=== PATIENT | male | born 1995 | race Caucasian/White ===

== ENCOUNTER 2021-02-01 13:20 | Emergency (ER) | payer SELFPAY ==
--- NOTE | 2021-02-01 14:02 | EDM.PDOC ---
ED HPI GENERAL MEDICAL PROBLEM - General Chief Complaint: Respiratory Problem Stated Complaint: SOB Time Seen by Provider: 02/01/21 13:47 Source of Information: Reports: Patient History Limitations: Reports: No Limitations - History of Present Illness INITIAL COMMENTS - FREE TEXT/NARRATIVE: Néstor is a 25-year-old male presenting to the ED for increased shortness of breath. The patient reports that he acutely became short of breath and "turned blue today" prompting him to come into the ED for evaluation. Patient does report that he smokes 2 packs of cigarettes a day. He denies any fever or chills, cough, loss of taste or smell, nausea, vomiting, or diarrhea. He has had a normal appetite. He was outside in the cold air when this occurred today. - Related Data Allergies Allergy/AdvReac Type Severity Reaction Status Date / Time No Known Allergies Allergy Verified 02/01/21 13:41 Home Meds: Home Meds NK [No Known Home Meds] 02/01/21 [History] Past Medical History HEENT History: Reports: Otitis Media Cardiovascular History: Reports: Hypertension Respiratory History: Reports: None Gastrointestinal History: Reports: GERD Genitourinary History: Reports: None Musculoskeletal History: Reports: Fracture Neurological History: Reports: None Psychiatric History: Reports: Anxiety, Depression Endocrine/Metabolic History: Reports: None Hematologic History: Reports: None Immunologic History: Reports: None Oncologic (Cancer) History: Reports: None Dermatologic History: Reports: None - Infectious Disease History Infectious Disease History: Reports: Chicken Pox - Past Surgical History HEENT Surgical History: Reports: Myringotomy w Tube(s), Tonsillectomy Other HEENT Surgeries/Procedures: cyst in right ear removed ED ROS GENERAL - Review of Systems Review Of Systems: See Below Constitutional: Reports: No Symptoms HEENT: Reports: No Symptoms Respiratory: Reports: Shortness of Breath Cardiovascular: Reports: No Symptoms Endocrine: Reports: No Symptoms GI/Abdominal: Reports: No Symptoms : Reports: No Symptoms Musculoskeletal: Reports: No Symptoms Skin: Reports: Cyanosis (Witnessed by several of his coworkers involving the face and hands.) Neurological: Reports: No Symptoms Psychiatric: Reports: Anxiety Hematologic/Lymphatic: Reports: No Symptoms Immunologic: Reports: No Symptoms ED EXAM, GENERAL - Physical Exam Exam: See Below Exam Limited By: No Limitations General Appearance: Alert, No Apparent Distress, Obese Eye Exam: Bilateral Eye: EOMI, PERRL Throat/Mouth: Normal Inspection, Normal Oropharynx, Normal Voice, No Airway Compromise. No: Perioral Cyanosis Head: Atraumatic, Normocephalic Neck: Normal Inspection, Supple Respiratory/Chest: No Respiratory Distress, Lungs Clear, Normal Breath Sounds. No: Crackles, Rales, Rhonchi, Wheezing Cardiovascular: Normal Peripheral Pulses, Regular Rate, Rhythm, No Murmur Peripheral Pulses: 2+: Radial (L), Radial (R) GI/Abdominal: Normal Bowel Sounds, Soft, Non-Tender Neurological: Alert, Oriented, Normal Cognition, No Motor/Sensory Deficits Psychiatric: Normal Affect, Normal Mood Skin Exam: Warm, Dry, Intact. No: Cyanosis Lymphatic: No Adenopathy Course - Vital Signs Last Recorded V/S: Last Vital Signs Temp 36.8 C 02/01/21 13:39 Pulse 80 02/01/21 13:42 Resp 20 02/01/21 13:42 BP 129/77 02/01/21 13:42 Pulse Ox 98 02/01/21 13:42 - Orders/Labs/Meds Orders: Active Orders 24 hr Category Date Time Status D-DIMER QUANTITATIVE [COAG] Stat Lab 02/01/21 13:49 Received PROCALCITONIN [CHEM] Stat Lab 02/01/21 13:49 Received Isolation [COMM] Stat Oth 02/01/21 13:57 Ordered Labs: Laboratory Tests 02/01/21 02/01/21 02/01/21 Range/Units 13:49 13:49 13:49 WBC 7.7 (4.5-11.0) K/uL RBC 5.56 (4.30-5.90) M/uL Hgb 16.0 H (12.0-15.0) g/dL Hct 48.4 (40.0-54.0) % MCV 87 (80-98) fL MCH 29 (27-31) pg MCHC 33 (32-36) % Plt Count 265 (150-400) K/uL Neut % (Auto) 62.5 (36-66) % Lymph % (Auto) 28.4 (24-44) % Amite % (Auto) 7.8 H (2-6) % Eos % (Auto) 0.9 L (2-4) % Baso % (Auto) 0.4 (0-1) % Sodium 137 L (140-148) mmol/L Potassium 3.9 (3.6-5.2) mmol/L Chloride 103 (100-108) mmol/L Carbon Dioxide 27 (21-32) mmol/L Anion Gap 10.9 (5.0-14.0) mmol/L BUN 18 (7-18) mg/dL Creatinine 0.9 (0.8-1.3) mg/dL Est Cr Clr Drug Dosing 144.26 mL/min Estimated GFR (MDRD) > 60 (>60) Glucose 102 (74-106) mg/dL Lactic Acid 1.0 (0.4-2.0) mmol/L Calcium 8.9 (8.5-10.1) mg/dL Total Bilirubin 0.5 (0.2-1.0) mg/dL AST 16 (15-37) U/L ALT 35 (12-78) U/L Alkaline Phosphatase 56 (46-116) U/L Lactate Dehydrogenase 159 (85-227) U/L C-Reactive Protein < 0.05 (0.0-0.3) mg/dL Total Protein 6.6 (6.4-8.2) g/dL Albumin 3.8 (3.4-5.0) g/dL Globulin 2.8 (2.3-3.5) g/dL Albumin/Globulin Ratio 1.4 (1.2-2.2) Influenza Type A RNA (NEGATIVE) RSV RNA (INAAT) (NEGATIVE) Influenza Type B RNA (NEGATIVE) SARS-CoV-2 RNA (YADIRA) (NEGATIVE) 02/01/21 Range/Units 14:20 WBC (4.5-11.0) K/uL RBC (4.30-5.90) M/uL Hgb (12.0-15.0) g/dL Hct (40.0-54.0) % MCV (80-98) fL MCH (27-31) pg MCHC (32-36) % Plt Count (150-400) K/uL Neut % (Auto) (36-66) % Lymph % (Auto) (24-44) % Amite % (Auto) (2-6) % Eos % (Auto) (2-4) % Baso % (Auto) (0-1) % Sodium (140-148) mmol/L Potassium (3.6-5.2) mmol/L Chloride (100-108) mmol/L Carbon Dioxide (21-32) mmol/L Anion Gap (5.0-14.0) mmol/L BUN (7-18) mg/dL Creatinine (0.8-1.3) mg/dL Est Cr Clr Drug Dosing mL/min Estimated GFR (MDRD) (>60) Glucose (74-106) mg/dL Lactic Acid (0.4-2.0) mmol/L Calcium (8.5-10.1) mg/dL Total Bilirubin (0.2-1.0) mg/dL AST (15-37) U/L ALT (12-78) U/L Alkaline Phosphatase (46-116) U/L Lactate Dehydrogenase (85-227) U/L C-Reactive Protein (0.0-0.3) mg/dL Total Protein (6.4-8.2) g/dL Albumin (3.4-5.0) g/dL Globulin (2.3-3.5) g/dL Albumin/Globulin Ratio (1.2-2.2) Influenza Type A RNA Negative (NEGATIVE) RSV RNA (INAAT) Negative (NEGATIVE) Influenza Type B RNA Negative (NEGATIVE) SARS-CoV-2 RNA (YADIRA) Negative (NEGATIVE) - Re-Assessments/Exams Free Text/Narrative Re-Assessment/Exam: 02/01/21 15:12 I reviewed the patient's labs showing a normal CBC with a leukocyte count of 7.7, hemoglobin of 16, and platelet count of 265,000. His comprehensive metabolic panel was also unremarkable with a sodium of 137, potassium 3.9, chloride of 103, bicarbonate of 27, BUN of 18 with a creatinine of 0.9 and a glucose of 102. The patient's lactate acid was 1.0, his LDH was 159 and his C-reactive protein was less than 0.05. He is negative for Covid, RSV, and influenza. His chest x-ray was unremarkable. At this time I believe the patient is suitable for discharge home. He likely had symptoms related to bronchospasm. We did discuss smoking cessation and he should find a program that will work for him including addressing other treatments for his anxiety which is likely why he is a 2 pack-a-day smoker. Indications return to the ED were discussed and he was discharged in satisfactory condition. Departure - Departure Time of Disposition: 15:08 Disposition: Home, Self-Care 01 Clinical Impression: Acute bronchospasm, Tobacco use - Discharge Information Instructions: Bronchospasm, Adult, [id number] Referrals: PCP,None [Primary Care Provider] - Forms: ED Department Discharge Care Plan Goals: Your work-up today has shown that you are negative for COVID-19, influenza, and RSV. There was no sign in your work-up of a pneumonia or bronchitis with normal blood work. Your chest x-ray was remarkable only for hyperinflation of the lungs consistent with your smoking. I would highly recommend that you find a program that works for you to quit smoking as you do not want to develop COPD and require oxygen. At this time we can safely let you go home. If you have any questions or concerns feel free to contact us. Sepsis Event Note (ED) - Evaluation Sepsis Screening Result: No Definite Risk - Focused Exam Vital Signs: Vital Signs Temp Pulse Resp BP Pulse Ox 02/01/21 13:42 80 20 129/77 98 02/01/21 13:39 36.8 C 85 18 154/122 H 98 02/01/21 13:35 36.8 C 85 18 154/122 H 98 - Problem List & Annotations (1) Acute bronchospasm SNOMED Code(s): 41201533335318 Code(s): J98.01 - ACUTE BRONCHOSPASM Status: Acute Priority: High Current Visit: Yes (2) Tobacco use SNOMED Code(s): 040907375 Code(s): Z72.0 - TOBACCO USE Status: Acute Priority: High Current Visit: Yes - Problem List Review Problem List Initiated/Reviewed/Updated: Yes - My Orders Last 24 Hours: My Active Orders 02/01/21 13:49 D-DIMER QUANTITATIVE [COAG] Stat PROCALCITONIN [CHEM] Stat 02/01/21 13:57 Isolation [COMM] Stat - Assessment/Plan Last 24 Hours: My Active Orders 02/01/21 13:49 D-DIMER QUANTITATIVE [COAG] Stat PROCALCITONIN [CHEM] Stat 02/01/21 13:57 Isolation [COMM] Stat
[2021-02-01 14:46] LABS: CORONAVIRUS COVID-19 NAA NEGATIVE (NEGATIVE)
--- NOTE | 2021-02-01 14:49 | CR ---
CHEST: Portable 02/01/2021 at 2:37 PM CLINICAL HISTORY:Dyspnea and cyanosis COMPARISON:None FINDINGS: The heart is enlarged. Pulmonary vascular is normal. Lung rowell are free of infiltrates or effusions. Impression: Cardiomegaly No acute cardiac pulmonary process.
== END 2021-02-01 15:20 | disposition home or self-care (01) ==
LOC: JP.ED 13:20
DX: J98.01 Acute bronchospasm (principal); Z72.0 Tobacco use; I10 Essential (primary) hypertension; Z20.822 Contact with and (suspected) exposure to COVID-19
CPT/HCPCS: 0241U; 36415; 71045; 80053; 83605; 83615; 84145; 85025; 85379; 86140; 99285